=== PATIENT | female | born 1990 | race Caucasian/White ===

== ENCOUNTER 2018-08-10 11:56 | Outpatient (REF) | payer BC, SELFPAY ==
--- NOTE | 2018-08-10 11:30 | PAPFT_PTH ---
PATIENT: Jack Hilton LOC: [facility] U#:[id number] AGE/SX: 28/F ROOM: RE08/10/[address]: MARIO Syed : 1990 BED: DIS: 08/10/2018 SPEC #: [id number] RECD: 08/10/18 18:11 STATUS: EASTON REQ #: [id number] CHARLY: 08/10/18 11:[address]: Maddison Rodgers DEPT: [facility] Cytology RECD BY: Tammi Tom ENTERED: 08/10/18 18:11 SP TYPE: PAPFT ARMIN DR: Wendi Laureano APRN Tissues: 1 - CX/ENDOCX FOR PAP SMEARS Procedures: PAP THIN PREP/UVM Screening HPV DNA PROBE Comments: [id number]
== END 2018-08-10 12:16 ==
LOC: LBN 11:56
PROVIDERS: PCP Nurse Practitioner; Visit Provider Nurse Practitioner Family
DX: Z12.4 Encounter for screening for malignant neoplasm of cervix (principal); Z11.51 Encounter for screening for human papillomavirus (HPV)
CPT/HCPCS: 88142; 87624

== ENCOUNTER 2018-08-29 14:13 | Outpatient (REF) | payer BC, SELFPAY ==
--- NOTE | 2018-08-29 13:00 | CER_PTH ---
PATIENT: Jack Hilton LOC: [facility] U#:[id number] AGE/SX: 28/F ROOM: RE08/29/[address]: Mariah Mims MD : 1990 BED: DIS: 08/29/2018 SPEC #: [id number] RECD: 08/29/18 17:41 STATUS: EASTON RELorie #: [id number] CHARLY: 08/29/18 13:[address]: Mariah Mims DEPT: Surgical Specimen RECD BY: Tammi Tom ENTERED: 08/29/18 17:43 SP TYPE: CER OTHR DR: Wendi Laureano APRN Tissues: 1 - CERVICAL BIOPSY 2 - CERVICAL BIOPSY 3 - ENDOCERVICAL BX/CURRETTE Procedures: GROSS AND MICRO LEVEL 4 Comments: [id number]
== END 2018-08-29 14:33 ==
LOC: LBN 14:13
PROVIDERS: PCP Nurse Practitioner; Visit Provider Obstetrics & Gynecology
DX: N87.9 Dysplasia of cervix uteri, unspecified (principal); R87.610 Atypical squamous cells of undetermined significance on cytologic smear of cervix (ASC-US); N72 Inflammatory disease of cervix uteri
CPT/HCPCS: 88305

== ENCOUNTER 2019-08-16 11:36 | Outpatient (REF) | payer BC, SELFPAY ==
--- NOTE | 2019-08-16 11:30 | PAPFT_PTH ---
PATIENT: Jack Hilton LOC: [facility] U#:[id number] AGE/SX: 29/F ROOM: RE08/16/[address]: MARIO Syed : 1990 BED: DIS: 08/16/2019 SPEC #: [id number] RECD: 08/16/19 16:05 STATUS: EASTON RELorie #: [id number] CHARLY: 08/16/19 11:[address]: Maddison Rodgers DEPT: [facility] Cytology RECD BY: Tammi Tom ENTERED: 08/16/19 16:07 SP TYPE: PAPFT ARMIN DR: Wendi Laureano APRN Tissues: 1 - CX/ENDOCX FOR PAP SMEARS Procedures: PAP THIN PREP/UVM Screening HPV DNA PROBE Comments: [id number]
== END 2019-08-16 11:56 ==
LOC: LBN 11:36
PROVIDERS: PCP Nurse Practitioner; Visit Provider Nurse Practitioner Family
DX: Z12.4 Encounter for screening for malignant neoplasm of cervix (principal); R87.610 Atypical squamous cells of undetermined significance on cytologic smear of cervix (ASC-US)
CPT/HCPCS: 88142; 87624

== ENCOUNTER 2019-10-18 11:46 | Outpatient (REF) | payer BC, SELFPAY ==
--- NOTE | 2019-10-18 13:07 | CER_PTH ---
PATIENT: Jack Hilton LOC: [facility] U#:[id number] AGE/SX: 29/F ROOM: RE10/18/[address]: Priyanka Hatch DO : 1990 BED: DIS: 10/18/2019 SPEC #: [id number] RECD: 10/19/19 11:55 STATUS: EASTON REQ #: [id number] CHARLY: 10/18/19 13:[address]: Priyanka Hatch DEPT: Surgical Specimen RECD BY: Tammi Tom ENTERED: 10/19/19 11:56 SP TYPE: CER OTHR DR: Wendi Laureano APRN Tissues: 1 - CERVICAL BIOPSY 2 - ENDOCERVICAL BX/CURRETTE Procedures: GROSS AND MICRO LEVEL 4 Comments: [id number]
== END 2019-10-18 12:06 ==
LOC: LBN 11:46
PROVIDERS: PCP Nurse Practitioner; Visit Provider Obstetrics & Gynecology
DX: N87.9 Dysplasia of cervix uteri, unspecified (principal); N72 Inflammatory disease of cervix uteri; R87.610 Atypical squamous cells of undetermined significance on cytologic smear of cervix (ASC-US); R87.810 Cervical high risk human papillomavirus (HPV) DNA test positive
CPT/HCPCS: 88305

== ENCOUNTER 2020-08-01 12:04 | Outpatient (CLI) | payer OTHER, SELFPAY ==
[2020-08-02 14:23] LABS: COVID-19 RT-PCR UVMMC Result Negative (Negative)
== END 2020-08-01 12:05 | disposition home or self-care (01) ==
LOC: LBO 12:04
PROVIDERS: PCP Nurse Practitioner; Visit Provider Nurse Practitioner
DX: Z20.822 Contact with and (suspected) exposure to COVID-19 (principal)
CPT/HCPCS: U0003

== ENCOUNTER 2020-11-04 11:54 | Outpatient (REF) | payer OTHER, SELFPAY ==
--- NOTE | 2020-11-04 11:25 | PAPFT_PTH ---
PATIENT: Jack Hiltno LOC: [facility] U#:[id number] AGE/SX: 30/F ROOM: RE11/04/[address]: MARIO Syed : 1990 BED: DIS: 11/04/2020 SPEC #: [id number] RECD: 11/04/20 13:13 STATUS: EASTON RELorie #: [id number] CHARLY: 11/04/20 11:[address]: Maddison Rodgers DEPT: [facility] Cytology RECD BY: Tammi Tom ENTERED: 11/04/20 13:13 SP TYPE: PAPFT OT DR: Wendi Laureano APRN Tissues: 1 - CX/ENDOCX FOR PAP SMEARS Procedures: PAP THIN PREP/UVM Screening HPV DNA PROBE Comments: [id number]
== END 2020-11-04 11:55 | disposition home or self-care (01) ==
LOC: LBN 11:54
PROVIDERS: PCP Nurse Practitioner; Visit Provider Nurse Practitioner Family
DX: Z12.4 Encounter for screening for malignant neoplasm of cervix (principal); Z87.42 Personal history of other diseases of the female genital tract; Z11.51 Encounter for screening for human papillomavirus (HPV); Z01.419 Encounter for gynecological examination (general) (routine) without abnormal findings
CPT/HCPCS: 88142; 87624

== ENCOUNTER 2021-12-17 13:54 | Outpatient (REF) | payer OTHER, SELFPAY ==
--- NOTE | 2021-12-17 11:45 | PAPFT_PTH ---
PATIENT: Jack Hilton LOC: [facility] U#:[id number] AGE/SX: 31/F ROOM: RE12/17/[address]: MARIO Syed : 1990 BED: DIS: 12/17/2021 SPEC #: [id number] RECD: 12/17/21 15:01 STATUS: EASTON REQ #: [id number] CHARLY: 12/17/21 11:[address]: Maddison Rodgers DEPT: [facility] Cytology RECD BY: Isa [place] ENTERED: 12/17/21 15:01 SP TYPE: PAPFT OTHR DR: Wendi Laureano APRN Tissues: 1 - CX/ENDOCX FOR PAP SMEARS Procedures: PAP THIN PREP/UVM Screening HPV DNA PROBE Comments: [id number]
== END 2021-12-17 13:55 | disposition home or self-care (01) ==
LOC: LBN 13:54
PROVIDERS: PCP Nurse Practitioner; Visit Provider Nurse Practitioner Family
DX: R87.810 Cervical high risk human papillomavirus (HPV) DNA test positive (principal); Z12.4 Encounter for screening for malignant neoplasm of cervix; Z11.51 Encounter for screening for human papillomavirus (HPV)
CPT/HCPCS: 88142; 87624

== ENCOUNTER 2022-12-27 11:51 | Outpatient (REF) | payer OTHER, SELFPAY ==
--- NOTE | 2022-12-27 11:30 | PAPFT_PTH ---
PATIENT: Jack Hilton LOC: [facility] U#:[id number] AGE/SX: 32/F ROOM: RE12/27/[address]: Keisha Merlos NP : 1990 BED: DIS: 12/27/2022 SPEC #: [id number] RECD: 12/27/22 14:39 STATUS: EASTON RELorie #: [id number] CHARLY: 12/27/22 11:[address]: Keisha Merlos NP DEPT: [facility] Cytology RECD BY: Ramona Meza ENTERED: 12/27/22 14:40 SP TYPE: PAPFT OTHR DR: Wendi Laureano APRN Tissues: 1 - CX/ENDOCX FOR PAP SMEARS Procedures: PAP THIN PREP/UVM Screening HPV DNA PROBE Comments: [id number]
== END 2022-12-27 11:52 | disposition home or self-care (01) ==
LOC: LBN 11:51
PROVIDERS: PCP Nurse Practitioner; Visit Provider Nurse Practitioner Women's Health
DX: Z12.4 Encounter for screening for malignant neoplasm of cervix (principal); Z87.42 Personal history of other diseases of the female genital tract; Z11.51 Encounter for screening for human papillomavirus (HPV)
CPT/HCPCS: 88142; 87624

== ENCOUNTER 2024-01-31 10:20 | Outpatient (REF) | payer OTHER, SELFPAY ==
--- NOTE | 2024-01-31 10:10 | PAPFT_PTH ---
PATIENT: Jack Hilton LOC: [facility] U#:[id number] AGE/SX: 33/F ROOM: RE01/31/[address]: Keisha Merlos NP : 1990 BED: DIS: 01/31/2024 SPEC #: [id number] RECD: 01/31/24 12:51 STATUS: EASTON RELorie #: [id number] CHARLY: 01/31/24 10:[address]: Keisha Merlos NP [facility] Cytology RECD BY: Tammi Tom ENTERED: 01/31/24 12:51 SP TYPE: PAPFT OTHR DR: Wendi Laureano APRN Tissues: 1 - CX/ENDOCX FOR PAP SMEARS Procedures: PAP THIN PREP/UVM Screening HPV DNA PROBE Comments: [id number] (HPV 16 & 18/45)
== END 2024-01-31 10:21 | disposition home or self-care (01) ==
LOC: LBN 10:20
PROVIDERS: PCP Nurse Practitioner; Visit Provider Nurse Practitioner Women's Health
DX: Z01.419 Encounter for gynecological examination (general) (routine) without abnormal findings (principal); Z78.9 Other specified health status; Z12.4 Encounter for screening for malignant neoplasm of cervix
CPT/HCPCS: 88142; 87624

== ENCOUNTER 2025-02-04 13:12 | Outpatient (REF) | payer OTHER, SELFPAY ==
--- NOTE | 2025-02-04 13:00 | PAPFT_PTH ---
PATIENT: Jack Hilton LOC: [facility] U#:[id number] AGE/SX: 34/F ROOM: RE02/04/[address]: Keisha Merlos NP : 1990 BED: DIS: 02/04/2025 SPEC #: [id number] RECD: 02/04/25 17:07 STATUS: EASTON DAN #: [id number] CHARLY: 02/04/25 13:[address]: Chelita LANIER,Keisha DEPT: [facility] Cytology RECD BY: Tammi Tom ENTERED: 02/04/25 17:07 SP TYPE: PAPFT OTHR DR: Wendi Laureano APRN Tissues: 1 - CX/ENDOCX FOR PAP SMEARS Procedures: PAP THIN PREP/UVM Screening HPV DNA PROBE Comments: [id number] (HPV 16 & 18/45)
== END 2025-02-04 13:13 | disposition home or self-care (01) ==
LOC: LBN 13:12
PROVIDERS: PCP Nurse Practitioner; Visit Provider Nurse Practitioner Women's Health
DX: Z12.4 Encounter for screening for malignant neoplasm of cervix (principal)
CPT/HCPCS: 88142; 87624